=== PATIENT | female | born 1955 | race Caucasian/White ===

== ENCOUNTER → 2020-02-15 | Outpatient (CLI) | payer OTHER | END | disposition home or self-care (01) | LOC: CFH 08:17 | PROVIDERS: ATTEND Family Medicine | DX: Z12.31 Encounter for screening mammogram for malignant neoplasm of breast (principal) | CPT/HCPCS: 77063; 77067 ==

== ENCOUNTER → 2020-05-07 | Outpatient (CLI) | payer OTHER | END | disposition home or self-care (01) | LOC: CVU 07:33 | PROVIDERS: ATTEND Family Medicine | DX: I83.92 Asymptomatic varicose veins of left lower extremity (principal); R60.9 Edema, unspecified | CPT/HCPCS: 93922; 93970 ==